=== PATIENT | male | born 1970 | race Caucasian/White ===

== ENCOUNTER 2016-11-03 06:31 | Emergency (ER) | payer SELFPAY ==
[2016-11-03] MEDS ORDERED: HYDROcodone/APAP 5/325 MG 1 TAB TABLET PO ONE (07:33)
--- NOTE | 2016-11-03 08:19 | ER PHYSICIAN DOCUMENTATION ---
Physician Documentation [facility] Name:Saman Gómez Age:46 yrs Sex:Male :1970 Arrival Date:11/03/2016 Time:06:31 Bed1 Private MD: Raul Chavira Disposition: 11/03/16 07:29 Discharged to Home/Self Care. Impression: Dental Caries, Dental Abscess. - Condition is Fair. - Discharge Instructions: DENTAL ABSCESS w/ Facial Cellulitis. - Prescriptions for Clindamycin HCl 300 mg Oral Capsule - take 1 capsule by ORAL route every 6 hours for 10 days; 40 capsule. Hydrocodone- Acetaminophen 5-325 mg Oral Tablet - take 1 tablet by ORAL route every 6 hours As needed; 20 tablet. - Medical Reconciliation form form. - Follow up: Private, Dentist; When: 4- 6 days; Reason: Continuance of care. - Problem is new. - Symptoms are unchanged. HPI: 11/03 07:25 This 46 yrs old Male presents to ER with complaints of toothache. sc 07:25 The patient presents with pain, swelling. The problem is located in the right buccal sc mucosa. Onset: The symptom(s)/episode began/occurred yesterday. Duration: The symptoms are continuous. Modifying factors: The symptoms are alleviated by over the counter medications, NSAIDs. Associated signs and symptoms: The patient has no apparent associated signs or symptoms. ROS: 07:26 Constitutional: Negative for fever, chills, and weight loss. sc Eyes: Negative for injury, pain, redness, and discharge. Neck: Negative for injury, pain, and swelling. Cardiovascular: Negative for chest pain, palpitations, and edema. Respiratory: Negative for shortness of breath, cough, wheezing, and pleuritic chest pain. Abdomen/GI: Negative for abdominal pain, nausea, vomiting, diarrhea, and constipation. Back: Negative for injury and pain. Skin: Negative for injury, rash, and discoloration. 07:26 Neuro: Negative for headache, weakness, numbness, tingling, and seizure. sc 07:26 ENT: Positive for dental pain. Exam: Constitutional: This is a well developed, well nourished patient who is awake, alert, and in no acute distress. Head/Face: Normocephalic, atraumatic. Eyes: Pupils equal round and reactive to light, extra-ocular motions intact. Lids and lashes normal. Conjunctiva and sclera are non-icteric and not injected. Cornea within normal limits. Periorbital areas with no swelling, redness, or edema. Chest/axilla: Normal chest wall appearance and motion. Nontender with no deformity. No lesions are appreciated. Cardiovascular: Regular rate and rhythm with a normal S1 and S2. No gallops, murmurs, or rubs. Normal PMI, no JVD. No pulse deficits. Back: No spinal tenderness. No costovertebral tenderness. Full range of motion. 07:27 Skin: Warm, dry with normal turgor. Normal color with no rashes, no lesions, and no sc evidence of cellulitis. 07:27 ENT: Mouth: Oral mucosa: moist, Dental exam: abscess, that is moderate, dental caries, that is severe, fractured teeth are noted, gum swelling. MDM: 07:25 Patient medically screened. ny 07:28 Differential diagnosis: dental caries, gingivitis, dental abscess. Data reviewed: vital sc signs, nurses notes, and as a result, I will discharge patient, administer antibiotics prescribe pain medication. Counseling: I had a detailed discussion with the patient and/or guardian regarding: the historical points, exam findings, and any diagnostic results supporting the discharge/admit diagnosis, the need for outpatient follow up. Dispensed Medications: 07:25 Drug: HYDROcodone-acetaminophen 5 mg-325 mg 1 tabs; Route: PO; tg 07:45 Follow up: Response: No adverse reaction tg Signatures: Khalif Murry RN RN tg Raul Saul MD MD ny
--- NOTE | 2016-11-03 08:19 | ER NURSING DOCUMENTATION ---
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 08:16 Acuity: ASHLEY 4 tg ED Course: 07:23 Patient arrived in ED. tg 07:25 Raul Saul MD is Attending Physician. sc 07:29 Private, Dentist is Referral Physician. sc 08:16 Triage completed. tg Administered Medications: 07:25 Drug: HYDROcodone-acetaminophen 5 mg-325 mg 1 tabs; Route: PO; tg 07:45 Follow up: Response: No adverse reaction tg Outcome: 07:29 Discharge ordered by . sc 08:18 Patient left the ED. tg 09:36 E-Prescribed Other called in to [facility]. Pen VK 500 mg 1 tab po QID X 7 days. lpr Replacement for original Clindamycin script which was too expensive for the patient. Signatures: Khalif Murry RN RN tg Raul Saul MD MD sc Roberts, Leslie, RN RN lpr
== END 2016-11-03 08:19 | disposition home or self-care (01) ==
LOC: ER 06:31
DX: K02.9 Dental caries, unspecified (principal); K04.7 Periapical abscess without sinus; K03.81 Cracked tooth; K08.89 Other specified disorders of teeth and supporting structures
CPT/HCPCS: 99282